=== PATIENT | female | born 1935 | race Caucasian/White ===

== ENCOUNTER 2022-12-20 15:37 | Outpatient (CLI) | payer OTHER, SELFPAY | END 2022-12-20 15:38 | disposition home or self-care (01) | PROVIDERS: Visit Provider Nurse Practitioner Family | DX: R60.9 Edema, unspecified (principal) | CPT/HCPCS: 80053; 83880 ==

== ENCOUNTER 2022-12-27 14:18 | Outpatient (CLI) | payer OTHER, SELFPAY | END 2022-12-27 14:19 | disposition home or self-care (01) | LOC: LKVREF 14:20 | PROVIDERS: Visit Provider Physician Assistant Medical | DX: R06.00 Dyspnea, unspecified (principal); T73.3XXA Exhaustion due to excessive exertion, initial encounter | CPT/HCPCS: 83880 ==

== ENCOUNTER 2023-01-21 12:08 | Outpatient (CLI) | payer MEDICARE, SELFPAY | END 2023-01-21 12:09 | disposition home or self-care (01) | LOC: RAD 12:14 | PROVIDERS: PCP Physician Assistant Medical; Visit Provider Physician Assistant Medical | DX: R06.00 Dyspnea, unspecified (principal); I51.7 Cardiomegaly; I34.0 Nonrheumatic mitral (valve) insufficiency; I07.1 Rheumatic tricuspid insufficiency; I25.10 Atherosclerotic heart disease of native coronary artery without angina pectoris; I48.91 Unspecified atrial fibrillation | CPT/HCPCS: 93306 ==

== ENCOUNTER 2023-02-07 16:32 | Outpatient (CLI) | payer MEDICARE, SELFPAY | END 2023-02-07 16:33 | disposition home or self-care (01) | LOC: LKVREF 16:32 | PROVIDERS: PCP Physician Assistant Medical; Visit Provider Physician Assistant Medical | DX: I48.91 Unspecified atrial fibrillation (principal); I35.0 Nonrheumatic aortic (valve) stenosis | CPT/HCPCS: 83880 ==

== ENCOUNTER 2023-03-16 11:56 | Outpatient (CLI) | payer MEDICARE, SELFPAY | END 2023-03-16 11:57 | disposition home or self-care (01) | PROVIDERS: PCP Physician Assistant Medical; Visit Provider Physician Assistant Medical | DX: R53.83 Other fatigue (principal); R31.9 Hematuria, unspecified; I48.91 Unspecified atrial fibrillation; I35.0 Nonrheumatic aortic (valve) stenosis | CPT/HCPCS: 83880; 87086 ==

== ENCOUNTER 2023-04-05 13:45 | Outpatient (CLI) | payer MEDICARE, SELFPAY ==
--- NOTE | 2023-04-05 14:00 | CRLHL7_ITS ---
For Patients: As a result of the Century Cures Act, medical imaging exams and procedure reports are released immediately into your electronic medical record. You may view this report before your referring provider. If you have questions, please contact your health care provider. Indication: HEMATURIA, DIARRHEA OFF AND ON FOR A YEAR Technique: Noncontrast CT abdomen and pelvis. Please note that all CT scans at this facility use dose modulation, iterative reconstruction, and/or weight-based dosing when appropriate to reduce radiation dose to as low as reasonably achievable. Comparison: None Findings: Dystrophic calcification left breast. Mitral annular calcification. No pleural or pericardial effusion. 2.6 cm hiatal hernia. Normal noncontrast enhanced liver. Gallbladder normal. Splenic calcification. Thickening of the adrenal glands. No pancreatic lesion. Atherosclerotic changes. Mild scarring in both lung bases. No pleural effusion. Degenerative disc disease mid lumbar spine. Facet degeneration lumbar spine without spondylolisthesis. Severe hypertrophic changes at the left hip joint with subchondral cystic change. Adventitial bursitis adjacent to the inferior left hip joint spurring. No bladder stone. No pelvic mass. Sigmoid diverticulosis. No bowel obstruction. No diverticulitis. Normal appendix. Punctate 2 millimeter stone midportion right kidney. 9 millimeter stone in the left renal pelvis with mild adjacent stranding. Impression: 9 millimeter stone in the left renal pelvis with mild adjacent stranding and mild pelviectasis. Sigmoid diverticulosis. No bowel obstruction or diverticulitis. Hiatal hernia. Adventitial bursitis adjacent to the inferior left hip joint spurring. Please note that all CT scans at this facility use dose modulation, iterative reconstruction, and/or weight-based dosing when appropriate to reduce radiation dose to as low as reasonably achievable. Dictated by Pan Mattson MD @ 04/06/2023 12:26:53 PM (Electronically Signed)
== END 2023-04-05 13:46 | disposition home or self-care (01) ==
LOC: CT 13:46
PROVIDERS: PCP Physician Assistant Medical; Visit Provider Physician Assistant Medical
DX: R31.9 Hematuria, unspecified (principal); N20.0 Calculus of kidney; K57.30 Diverticulosis of large intestine without perforation or abscess without bleeding; K46.9 Unspecified abdominal hernia without obstruction or gangrene; R19.7 Diarrhea, unspecified
CPT/HCPCS: 74176

== ENCOUNTER 2023-09-02 13:46 | Outpatient (CLI) | payer MEDICARE, SELFPAY | END 2023-09-02 13:47 | disposition home or self-care (01) | LOC: RAD 13:48 | PROVIDERS: PCP Physician Assistant Medical; Visit Provider Internal Medicine | DX: I35.0 Nonrheumatic aortic (valve) stenosis (principal); I51.7 Cardiomegaly; I34.0 Nonrheumatic mitral (valve) insufficiency; I07.1 Rheumatic tricuspid insufficiency; I48.91 Unspecified atrial fibrillation | CPT/HCPCS: 93306 ==

== ENCOUNTER 2023-10-17 15:30 | Outpatient (CLI) | payer MEDICARE, SELFPAY | END 2023-10-17 15:31 | disposition home or self-care (01) | LOC: LKVREF 15:31 | PROVIDERS: PCP Physician Assistant Medical; Visit Provider Physician Assistant Medical | DX: I48.11 Longstanding persistent atrial fibrillation (principal) | CPT/HCPCS: 83880 ==

== ENCOUNTER 2023-10-31 15:27 | Outpatient (CLI) | payer MEDICARE, SELFPAY | END 2023-10-31 15:28 | disposition home or self-care (01) | LOC: LKVREF 15:30 | PROVIDERS: PCP Physician Assistant Medical; Visit Provider Physician Assistant Medical | DX: I35.0 Nonrheumatic aortic (valve) stenosis (principal); R60.0 Localized edema | CPT/HCPCS: 83880 ==

== ENCOUNTER 2023-12-09 13:00 | Outpatient (RCR) | payer MEDICARE, SELFPAY ==
--- NOTE | 2023-10-25 15:32 | PT.OPE ---
PT [facility] Eval Start: 10/25/23 15:29 Freq: Status: Active Protocol: Document 10/25/23 15:29 ENM (Rec: 10/25/23 15:29 ENM [id number]) E-signed By Gail Slade, DPT Physical Therapy Outpatient Evaluation Insurance Information Recert Due Date 01/23/24 Insurance Name Medicare B Medical Diagnosis other malaise pain in right knee pain in left knee Treating Diagnosis bilateral knee pain, decreased knee ROM, impaired gait, impaired transfer, deconditioning, impaired balance Referring MD Elena Subjective Subjective Patient presents to PT for complaint of B knee pain and deconditioning (R>L). She feels that her body has fallen apart in the last couple of years. Had a heart attack in May of 2022. After that also got swelling and a kidney stone. After that had other heart issues. 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 Due to her other medical comorbidities they are concerned about doing a knee replacement. Is going to see her sheepskin pickler next month. Laila thinks that she has to have a heart valve replacement before being able to have a knee replacement. She has been using a walker for mobility since 2021 but would like to get rid of it. [facility] Doesn't have to do the stairs but when she does she can go down but coming up is challenging. Going from sitting to standing can be difficult as well. Her brother used to care of her but he recently passed and she misses him a lot. Her goal is to be able to get up and walk without difficulty. Pain Comments knee pain 5-8/10 at times Current Work Status Retired Objective Other/Pertinent Objective ROM: Did not formally assess but visible lack of knee extension bilaterally Strength: prior to 5x STS HR 87 BPM spo2 91-97% BP 137/87 5x STS with use of arms 32. 29s After HR 101 spo2 95% hip flexors L 4/5 R 4-/5 knee extensors L 4/5 R 4-/5 ankle DF 5/5 B Gait/balance: Patient ambulates with a 2WW, slow pace, flexed trunk, decreased foot clearance, decreased knee extension (L>R) . After ambulate >20' patient starts to bear more weight through the walker due to fatigue TUG with 2WW 26s Other: swelling- mild swelling throughout, moderate pitting at ankles which is painful Assessment Assessment/Impression Patient is an 88 year old female presenting with bilateral knee pain (R>L) and deconditioning. Their primary complaint is of not being able to move as easily as they used to. They have difficulties with getting to standing, walking and performing household activities. PMHx significant for L knee replacement and cardiac issues in the last 2 years. She would like to get her right knee replaced but is not a candidate at this time due to cardiac issues. Will be seeing her sheepskin pickler next month. Upon assessment patient displays decreased functional strength, endurance and balance with 5xSTS and TUG testing. She is lacking knee extension bilaterally which is worse on her left compared to right. She ambulates with slow pace, flexed trunk and knee posture, decreased foot clearance with fatigue after 20' using 2WW. Her vitals were stable throughout assessment although she was visibly SOB after ambulation and STS. Laila Underwood would greatly benefit from skilled PT to improve functional strength and activity tolerance to maintain independence and decrease risk of future falls. Primary Functional Limitations getting to standing, going up the stairs, walking, daily registered nursing professor Plan of Care Rehabilitation Potential Fair Rehabilitation Potential Comments Progress may be limited due to other medical comorbidities Physical Therapy Goals In 12-14 visits: 1. Patient will be IND with HEP and self management of symptoms 2. Patient will improve TUG score from 26s to 22s (MDC 4s) or less to demonstrate improvements in balance/ stability 3. Patient will improve 5x STS from 32.29s to 28.29s (MDC 4s ) to demonstrate improvement in LE functional strength 4. Patient will be able to ambulate >70' with 2WW and no SOB to progress tolerance for community ambulation Coordination/Communication With Referral Source Treatment Plan/Direct Interventions Gait Training,Joint Mobilization,Manual Therapy, Neuromuscular Re-ed,Self-Care/ Home Management,Therapeutic Activities,Therapeutic Exercises Frequency/Duration 2x a week for 4 weeks, 1x a week for 5-6 visits as needed Patient Will Be Discharged From Therapy Completion of LTG(s), Independent w/HEP Evaluation Billing Untimed Code Treatment Minutes 36 Complexity Moderate Certification Information Initial Certification Date 10/25/23 Ending Certification Date 01/23/24 Provider Signature Shows Agreement With POC & Medical Necessity Physician Signature & Date Requested Please Sign/Date Here Physician Comment/Change : Physician NPI Number #
== END 2024-03-15 10:49 | disposition home or self-care (01) ==
PROVIDERS: PCP Physician Assistant Medical; Visit Provider Physician Assistant Medical
DX: M25.561 Pain in right knee (principal); M25.562 Pain in left knee; Z51.89 Encounter for other specified aftercare
CPT/HCPCS: 97110; 97162; 97530

== ENCOUNTER 2024-01-16 11:04 | Outpatient (CLI) | payer MEDICARE, SELFPAY | END 2024-01-16 11:05 | disposition home or self-care (01) | LOC: AMB 01-17 18:37 | PROVIDERS: PCP Physician Assistant Medical; Visit Provider Family Medicine | DX: R51.9 Headache, unspecified (principal) | CPT/HCPCS: A0425; A0427 ==

== ENCOUNTER 2024-01-16 12:04 | Inpatient (IN) | payer MEDICARE, SELFPAY ==
[2024-01-16] VITALS (8 sets, daily range): BP systolic 82–141; BP diastolic 50–108; PULSE 71–109; RESP 20–24; TEMP 36.5–37.1; O2SAT 93–98; BMI 34.3; BMI 34.4
--- NOTE | 2024-01-16 12:19 | ED_ITS ---
HPI - General Adult General Time Seen by Provider: 12:19 Date Seen: 01/16/24 Chief complaint: Weakness Stated complaint: Covid, weakness Time Seen by Provider: 01/16/24 12:06 Source: patient, EMS and RN notes reviewed Mode of arrival: EMS Limitations: no limitations History of Present Illness HPI narrative: This 88-year-old female is brought in by ambulance from [place] where she resides. She is complaining of weakness, has been lying in bed. She reports that she did fall on her right side yesterday, has some shoulder pain, complains of left hip pain, both knees hurt. She had diarrhea reportedly last , had some emesis yesterday. Patient seems confused at this time. She is denying any respiratory symptoms. She does have some baseline shortness of breath and is known to have severe aortic stenosis. There is no worsening of her symptoms. She has had some headaches. As far as body aches, she states she is hurting but believes it to be from the fall. There was reportedly COVID exposure but when I specifically ask patient, she acts like she is unaware of this. She did see Cardiology on January 08 last week for follow-up of her aortic stenosis. Sounds as if there may be plans to repair this. Nursing staff was told by EMS that there were friends that she had been in contact with that believe that the patient actually gave them COVID after visiting her. Unclear if patient was ill at that time or not. She just seems to be mildly confused when talking to her. She does note loss of appetite. No fevers. Denies any abdominal pain at this time. Related Data Home Medications ?Medication ?Instructions ?Recorded ?Confirmed cholecalciferol (vitamin D3) 25 25 mcg PO DAILY 12/20/22 01/16/24 mcg (1,000 unit) capsule famotidine 10 mg tablet (Pepcid AC) 10 mg PO DAILY 12/20/22 01/16/24 Previous Rx's ?Medication ?Instructions ?Recorded apixaban 5 mg tablet (Eliquis) 5 mg PO BID #180 tabs 10/17/23 carvedilol 12.5 mg tablet 12.5 mg PO BID #180 tabs 10/17/23 potassium chloride 10 mEq 10 meq PO BID #180 caps 10/17/23 capsule,extended release furosemide 20 mg tablet 20 mg PO BID #180 tabs 12/01/23 Allergies Allergy/AdvReac Type Severity Reaction Status Date / Time codeine Allergy Severe Nausea Verified 01/16/24 12:13 Review of Systems Status of ROS: Reports: 6 or more systems reviewed and unremarkable except as noted in History and [facility] History History of endometrial cancer (~2005) ?Z85.42 - Personal history of malignant neoplasm of other parts of uterus (ICD-10) History of heart attack (~05/2022) ?I25.2 - Old myocardial infarction (ICD-10) Surgical History History of total left knee replacement (~2015) ?Z96.652 - Presence of left artificial knee joint (ICD-10) History of total abdominal hysterectomy and bilateral salpingo-oophorectomy (~2005) ?Z90.710 - Acquired absence of both cervix and uterus (ICD-10) ?Z90.722 - Acquired absence of ovaries, bilateral (ICD-10) ?Z90.79 - Acquired absence of other genital organ(s) (ICD-10) Family History Mother DVT (deep venous thrombosis) Social History Smoking Status: Never smoker How often do you have a drink containing alcohol: never AUDIT-C Alcohol total score: 0 Non-prescribed substance use: denies use Little interest or pleasure in doing things: not at all Feeling down, depressed, or hopeless: several days service: No Exam Const: Vital Signs, click to edit/add: Vital Signs - 24 hr 01/16/24 12:15 01/16/24 12:55 Pulse Rate [Pulse Oximeter] 100 Respiratory Rate 20 Blood Pressure [Ri ght Upper Arm] 141/89 H Pulse Oximetry 97 98 Oxygen Delivery Me thod Room Air This 88-year-old female is alert and interactive, no apparent distress but does have difficulty giving me some of her history, she seems confused with her history in comparison what has been reported to us by EMS. No family is here at this time. Sclera clear, conjugate gaze, symmetrical facial function, able to speak in complete sentences. Neck is supple, no adenopathy. Lungs are clear, good air entry, no wheezing crackles, no tachypnea. CV regular rate and rhythm, has a soft but harsh systolic murmur heard right upper sternal border, really is not that loud. I hear gallop best down at the apex. Abdomen is obese but soft, nontender, do not feel any masses or organomegaly but body habitus may preclude this examination. She sitting with her knees flexed and feet on the bed. Anterior knees on inspection reveal no traumatic change. She does demonstrate extending the legs. Does not seem to have any range of motion issues, joints without effusion. Her right upper extremity reveals full range of motion throug h the fingers, hand, wrist, elbow. She complains of some shoulder pain but I do get good range of motion of the shoulder, no underlying crepitus, no significant limitation. Do not have any palpable tender areas on inspection and palpation of this extremity. No tenderness over her chest wall. Documenting provider has reviewed patient's vital signs: yes Course Course ED Course: This patient does strike me as possibly having some mild encephalopathy, would not surprise me if she does have COVID and some morris meant COVID encephalopathy. She could have underlying GI illness that is not related to COVID. Patient is not febrile, currently hemodynamically stable at this time. Will do imaging of her head given the fall, she cannot tell me if she hit her head. Does not believe there was loss of consciousness but again, she seems confused. Will image her shoulder, left hip and pelvis and knees. Will get complement of chemistries in labs, do the triple viral swab which will check for COVID. Will monitor here on pulse oximetry to start. Will get an EKG as well. Reevaluation(s) Time of Reevaluation #1: 13:30 Reevaluation #1: Patient's creatinine is elevated at 2.6 with a BUN of 44. Last creatinine in clinic was 1.4 on 10/31/2023. Consultations Consultation #1: Spoke with the hospitalist Dr. Christiansen, reviewed patient's case. Did point out that she has acute renal failure on probable underlying chronic renal disease. We did discuss that she is on Eliquis, this may need to be held or dose adjusted. Did discuss ongoing IV fluids, will initiate some maintenance with LR after my discussion with him. 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 Christiansen. She is not hypoxic, no pneumonia, no elevated white count. She will need supportive care, may need placement depending on her clinical course. Given her aortic stenosis, judicious fluid use is necessary. There is no evidence of CHF at this time. She did receive an initial 250 mL normal saline bolus. We will initiate IV fluids as stated. Time: 15:39 Vital Signs Vital signs: Initial Vital Signs Pulse Rate 100 01/16/24 12:15 Respiratory Rate 20 01/16/24 12:15 Blood Pressure 141/89 H 01/16/24 12:15 Blood Pressure Mean 106 H 01/16/24 12:15 Blood Pressure Position Semi-Fowlers 01/16/24 12:15 Pulse Oximetry 97 01/16/24 12:15 Oxygen Delivery Method Room Air 01/16/24 12:15 Vital Signs Pulse Rate 100 01/16/24 12:15 Respiratory Rate 20 01/16/24 12:15 Blood Pressure 141/89 H 01/16/24 12:15 Pulse Oximetry 97 01/16/24 12:15 Oxygen Delivery Method Room Air 01/16/24 12:15 Pulse Rate 100 01/16/24 12:15 Respiratory Rate 20 01/16/24 12:15 Blood Pressure 141/89 H 01/16/24 12:15 Pulse Oximetry 98 01/16/24 12:55 Oxygen Delivery Method Room Air 01/16/24 12:15 Medications Administered Medications: Discontinued Medications Generic Name Dose Route Start Last Admin Trade Name Freq PRN Reason Stop Dose Admin Sodium Chloride 250 mls @ 250 mls/hr 01/16/24 13:26 01/16/24 14:29 0.9 % Sodium Chloride 250 Ml IV 01/16/24 14:25 250 mls/hr .Q1H ONE Administration Medical Decision Making Lab Data Lab results reviewed: Yes I reviewed the patient's lab results Labs: Lab Results 01/16/24 01/16/24 01/16/24 Range/Units 12:46 15:35 Unknown WBC 5.49 (4.50-11.00) K/uL RBC 4.96 (4.00-5.20) m/uL Hgb 13.4 (12.0-16.0) gm/dL Hct 41.8 (33.0-51.0) % MCV 84 (80-100) fL MCH 27 (26-34) pg MCHC 32 (32-36) gm/dL RDW Coeff of Tigist 16.3 H (11.5-15.5) % Plt Count 195 (140-440) K/uL Neut % (Auto) 74.0 H (42.0-72.0) % Lymph % (Auto) 15.8 L (20-44) % [place] % (Auto) 9.1 (0.0-11.0) % Eos % (Auto) 0.7 (0.0-7.0) % Baso % (Auto) 0.2 (0.0-3.0) % Neut # (Auto) 4.10 (1.7-7.0) K/uL Lymph # (Auto) 0.90 (0.90-2.90) K/uL [place] # (Auto) 0.50 (0.00-0.90) K/UL Eos # (Auto) 0.04 (0.00-0.50) K/uL Baso # (Auto) 0.01 (0.00-0.30) K/uL Abs Immat Gran (auto) 0.01 (0.00-0.30) K/uL Imm/Tot Granulo (auto) 0.2 % Sodium 135 (135-149) mmol/L Potassium 3.4 L (3.6-5.1) mmol/L Chloride 101 (96-114) mmol/L Carbon Dioxide 22 (20-32) mmol/L Anion Gap 12 (7-15) mEq/L BUN 44 H (7-30) mg/dL Creatinine 2.6 H (0.5-1.5) mg/dL Estimated Creat Clear 13.16 Estimated GFR 17 ml/min Glucose 122 H (60-115) mg/dL Lactate 1.1 (0.5-1.9) mmol/L Calcium 8.8 (8.4-10.6) mg/dL Total Bilirubin 1.1 (0.1-1.5) mg/dL AST 29 (12-35) U/L ALT 9 (4-35) U/L Alkaline Phosphatase 63 (40-150) U/L Troponin I 0.02 (0.01-0.04) ng/mL C-Reactive Protein 2.3 H (0.5-1.0) mg/dL Total Protein 6.6 (6.0-8.3) g/dL Albumin 3.7 (3.3-5.0) g/dL SARS-CoV-2 (PCR) POSITIVE SARS-CoV-2 A (Negative) Influenza Type A (PCR) Negative PCR FLU A (Negative) Influenza Type B (PCR) Negative PCR FLU B (Negative) RSV (PCR) Negative PCR RSV (Negative) Lab Acknowledgement Test Added Imaging Data CT scan - head: Attestation: I have reviewed the pertinent imaging results. Radiologist's impression: Patient: FELICIANO AGUILAR Facility:?[facility] Patient ID:?[id number] Site Patient ID:?[id number]. Site :?[id number] Study:?CT-Head w/o-01/16/2024 1:50:47 PM Ordering Physician:?Marc García Final Report: INDICATION: Fall. Hit head. TECHNIQUE: CT head without contrast. COMPARISON: None. FINDINGS: Mild generalized volume loss. Mild ill-defined low attenuation in the periventricular and subcortical white matter. Intracranial atherosclerosis. There is no mass effect or midline shift. No hydrocephalus. No CT evidence of acute hemorrhage or infarction. No abnormal extra-axial fluid collection. Bone windows show no acute calvarial fracture. Lobular mucosal thickening, mucous retention cyst or polyp suspected in the right maxillary sinus. IMPRESSION: 1. No acute intracranial abnormality. 2. Mild generalized volume loss and changes of chronic small vessel ischemic disease. Dictated by Anselmo Vick MD @ 01/16/2024 2:06:53 PM Please note that all CT scans at this facility use dose modulation, iterative reconstruction, and/or weight-based dosing when appropriate to reduce radiation dose to as low as reasonably achievable. Dictated by: Anselmo Vick MD @ 01/16/2024 14:07:07 (Electronic Signature) XR right hip: Attestation: I have reviewed the pertinent imaging results. My impression: Do see significant arthritis of her right hip cannot say that I see definitive fracture, await Radiology over-read. Radiologist's impression: Patient: FELICIANO AGUILAR Facility:?[facility] Patient ID:?[id number] Site Patient ID:?[id number]. Site :?[id number] Study:?XRay-Hip Left 2 VIEW AND PELVIS-01/16/2024 2:32:41 PM Ordering Physician:?Marc García Final Report: INDICATION: Fall. Pain. TECHNIQUE: Pelvis one view. Left hip two views. COMPARISON: None. FINDINGS: Bone demineralization. Advanced degenerative changes at the left hip. [id number] degenerative changes of the right hip and visualized lumbar spine. No evidence of acute fracture or dislocation. Vascular calcifications and surgical clips in the pelvis. IMPRESSION: No acute osseous abnormality. Dictated by Anselmo Vick MD @ 01/16/2024 2:52:34 PM (Electronic Signature) XR right shoulder: Attestation: I have reviewed the pertinent imaging results. My impression: I do not appreciate fracture, do think that she has AC joint arthritis on my preliminary review, wait radiology over read. Radiologist's impression: Patient: FELICIANO AGUILAR Facility:?[facility] Patient ID:?[id number] Site Patient ID:?[id number]. Site :?[id number] Study:?XRay-Hip Left 2 VIEW AND PELVIS-01/16/2024 2:32:41 PM Ordering Physician:?Marc García Final Report: INDICATION: Fall. Pain. TECHNIQUE: Pelvis one view. Left hip two views. COMPARISON: None. FINDINGS: Bone demineralization. Advanced degenerative changes at the left hip. [id number] degenerative changes of the right hip and visualized lumbar spine. No evidence of acute fracture or dislocation. Vascular calcifications and surgical clips in the pelvis. IMPRESSION: No acute osseous abnormality. Dictated by Anselmo Vick MD @ 01/16/2024 2:52:34 PM (Electronic Signature) XR bilateral knees: Attestation: I have reviewed the pertinent imaging results. My impression: I do not appreciate any acute fracture on either knee on my preliminary review, she does have arthritic changes particularly in the medial joint of the right knee, left knee is replaced and the components looked to be well seated. Will await Radiology over-read. Radiologist's impression: Patient: FELICIANO AGUILAR Facility:?[facility] Patient ID:?[id number] Site Patient ID:?[id number]. Site :?[id number] Study:?XRay-Knee Bilateral 2 VIEW-01/16/2024 2:33:57 PM Ordering Physician:?Marc García Final Report: INDICATION: Fall. Bilateral knee pain. TECHNIQUE: Right knee two views. Left knee two views. COMPARISON: None. FINDINGS: No acute fracture or dislocation. Moderate to advanced right knee osteoarthritis greatest in the medial compartment, with medial compartment [id number] physiology. Left knee arthroplasty shows no evidence of complication. Vascular calcifications. Soft tissues as imaged are otherwise unremarkable. IMPRESSION: No acute osseous abnormality. Dictated by Anselmo Vick MD @ 01/16/2024 2:59:12 PM (Electronic Signature) Chest x-ray: Attestation: I have reviewed the pertinent imaging results. My impression: No infiltrate or CHF seen, do not appreciate any pattern consistent with COVID pneumonia on my preliminary review. Radiologist's impression: Patient: FELICIANO AGUILAR Facility:?[facility] Patient ID:?[id number] Site Patient ID:?[id number]. Site :?[id number] Study:?XRay-Chest 2 VIEW-01/16/2024 2:34:59 PM Ordering Physician:?Marc García Final Report: Indication: Fall, weakness Comparison: None available. Technique: PA and lateral views of the chest Findings: There is hyperinflation and chronic interstitial change without dense consolidation, effusion or pneumothorax. The cardiac silhouette is mildly prominent. The bony thorax is grossly intact. Impression: Hyperinflation and chronic interstitial change without dense consolidation. Dictated by Marino Arthur MD @ 01/16/2024 2:59:52 PM (Electronic Signature) ECG Data Attestation: I personally reviewed and interpreted this ECG as follows: (Atrial fibrillation, right bundle branch block, no definitive ischemia or infarct noted.) Prior ECG tracings: available for review (Compared to August 2023) Critical Care Time Critical Care Time Critical Care Time: No Discharge Plan Discharge Clinical Impression: COVID-19, Encephalopathy due to COVID-19 virus Acute renal failure superimposed on chronic kidney disease Qualifiers: Acute renal failure type: unspecified Chronic kidney disease stage: unspecified stage Qualified Code(s): N17.9 - Acute kidney failure, unspecified Patient Disposition: Admitted As Observation
[2024-01-16 12:52] LABS: Lactate* 1.1 mmol/L (0.5-1.9)
[2024-01-16 12:58] LABS: Basophils Absolute Auto 0.01 K/uL (0.00-0.30); Basophils Percent Auto 0.2 % (0.0-3.0); Eosinophils Absolute Auto 0.04 K/uL (0.00-0.50); Eosinophils Percent Auto 0.7 % (0.0-7.0); Hematocrit 41.8 % (33.0-51.0); Hemoglobin* 13.4 gm/dL (12.0-16.0); Immature Granulocytes Abs Auto 0.01 K/uL (0.00-0.30); Immature Granulocytes Pct Auto 0.2 %; Lymphocytes Percent Auto 15.8 % (20-44); Mean Corpuscular HGB Conc 32 gm/dL (32-36); Mean Corpuscular Hemoglobin 27 pg (26-34); Mean Corpuscular Volume 84 fL (80-100); Monocytes Percent Auto 9.1 % (0.0-11.0); Platelet Count* 195 K/uL (140-440); RDW Coefficient of Variation % 16.3 % (11.5-15.5); Red Blood Count 4.96 m/uL (4.00-5.20); White Blood Count* 5.49 K/uL (4.50-11.00)
--- NOTE | 2024-01-16 13:01 | CRLHL7_ITS ---
For Patients: As a result of the Cures Act, medical imaging exams and procedure reports are released immediately into your electronic medical record. You may view this report before your referring provider. If you have questions, please contact your health care provider. INDICATION: Fall. Bilateral knee pain. TECHNIQUE: Right knee two views. Left knee two views. COMPARISON: None. FINDINGS: No acute fracture or dislocation. Moderate to advanced right knee osteoarthritis greatest in the medial compartment, with medial compartment [id number] physiology. Left knee arthroplasty shows no evidence of complication. Vascular calcifications. Soft tissues as imaged are otherwise unremarkable. IMPRESSION: No acute osseous abnormality. Dictated by Anselmo Vick MD @ 01/16/2024 2:59:12 PM (Electronically Signed)
--- NOTE | 2024-01-16 13:01 | CRLHL7_ITS ---
For Patients: As a result of the Century Cures Act, medical imaging exams and procedure reports are released immediately into your electronic medical record. You may view this report before your referring provider. If you have questions, please contact your health care provider. INDICATION: Fall. Hit head. TECHNIQUE: CT head without contrast. COMPARISON: None. FINDINGS: Mild generalized volume loss. Mild ill-defined low attenuation in the periventricular and subcortical white matter. Intracranial atherosclerosis. There is no mass effect or midline shift. No hydrocephalus. No CT evidence of acute hemorrhage or infarction. No abnormal extra-axial fluid collection. Bone windows show no acute calvarial fracture. Lobular mucosal thickening, mucous retention cyst or polyp suspected in the right maxillary sinus. IMPRESSION: 1. No acute intracranial abnormality. 2. Mild generalized volume loss and changes of chronic small vessel ischemic disease. Dictated by Anselmo Vick MD @ 01/16/2024 2:06:53 PM Please note that all CT scans at this facility use dose modulation, iterative reconstruction, and/or weight-based dosing when appropriate to reduce radiation dose to as low as reasonably achievable. Dictated by: Anselmo Vick MD @ 01/16/2024 14:07:07 (Electronically Signed)
--- NOTE | 2024-01-16 13:01 | CRLHL7_ITS ---
For Patients: As a result of the Cures Act, medical imaging exams and procedure reports are released immediately into your electronic medical record. You may view this report before your referring provider. If you have questions, please contact your health care provider. INDICATION: Fall. Pain. TECHNIQUE: Right shoulder three views. COMPARISON: None. FINDINGS: No acute fracture or dislocation. Moderate degenerative changes of the acromioclavicular and glenohumeral joints. No additional osseous abnormality. Faint calcification near the greater tuberosity is likely degenerative. Carotid calcification suspected. Soft tissues elsewhere as imaged are unremarkable. IMPRESSION: No acute osseous abnormality. Dictated by Anselmo Vick MD @ 01/16/2024 2:54:54 PM (Electronically Signed)
--- NOTE | 2024-01-16 13:01 | CRLHL7_ITS ---
For Patients: As a result of the Century Cures Act, medical imaging exams and procedure reports are released immediately into your electronic medical record. You may view this report before your referring provider. If you have questions, please contact your health care provider. Indication: Fall, weakness Comparison: None available. Technique: PA and lateral views of the chest Findings: There is hyperinflation and chronic interstitial change without dense consolidation, effusion or pneumothorax. The cardiac silhouette is mildly prominent. The bony thorax is grossly intact. Impression: Hyperinflation and chronic interstitial change without dense consolidation. Dictated by Marino Arthur MD @ 01/16/2024 2:59:52 PM (Electronically Signed)
--- NOTE | 2024-01-16 13:01 | CRLHL7_ITS ---
For Patients: As a result of the Cures Act, medical imaging exams and procedure reports are released immediately into your electronic medical record. You may view this report before your referring provider. If you have questions, please contact your health care provider. INDICATION: Fall. Pain. TECHNIQUE: Pelvis one view. Left hip two views. COMPARISON: None. FINDINGS: Bone demineralization. Advanced degenerative changes at the left hip. [id number] degenerative changes of the right hip and visualized lumbar spine. No evidence of acute fracture or dislocation. Vascular calcifications and surgical clips in the pelvis. IMPRESSION: No acute osseous abnormality. Dictated by Anselmo Vick MD @ 01/16/2024 2:52:34 PM (Electronically Signed)
[2024-01-16 13:08] LABS: Slide Review Reflex No
[2024-01-16 13:10] LABS: Chloride* 101 mmol/L (96-114)
[2024-01-16 13:11] LABS: Albumin* 3.7 g/dL (3.3-5.0); Potassium* 3.4 mmol/L (3.6-5.1); Sodium* 135 mmol/L (135-149)
[2024-01-16 13:13] LABS: Creatinine* 2.6 mg/dL (0.5-1.5); Est. Creatinine Clearance* 13.16; Estimated Glomerular Filt Rate 17 ml/min
[2024-01-16 13:14] LABS: Alanine Aminotransferase* 9 U/L (4-35); Alkaline Phosphatase* 63 U/L (40-150); Anion Gap 12 mEq/L (7-15); Aspartate Amino Transferase* 29 U/L (12-35); Bilirubin Total* 1.1 mg/dL (0.1-1.5); Blood Urea Nitrogen* 44 mg/dL (7-30); Carbon Dioxide* 22 mmol/L (20-32); Glucose* 122 mg/dL (60-115); Total Protein* 6.6 g/dL (6.0-8.3)
[2024-01-16 13:15] LABS: Calcium* 8.8 mg/dL (8.4-10.6)
[2024-01-16 13:17] LABS: C Reactive Protein* 2.3 mg/dL (0.5-1.0)
[2024-01-16 13:26] LABS: Troponin I* 0.02 ng/mL (0.01-0.04)
[2024-01-16 13:31] LABS: PCR FLU A Negative PCR FLU A (Negative); PCR FLU B Negative PCR FLU B (Negative); PCR RSV Negative PCR RSV (Negative); SARS PCR* POSITIVE SARS-CoV-2 (Negative)
[2024-01-16] MEDS: 0.9 % SODIUM CHLORIDE 250 ml 250 ML IV (14:29)
[2024-01-16] MEDS: LACTATED RINGERS 1000 ML 1,000 ML 75 ML IV (15:48)
[2024-01-16 16:03] LABS: Appearance Urine Slightly Cloudy (Clear); Bilirubin Urine 1+ (Negative); Blood Urine 2+ (Negative); Color Urine Yellow (Yellow); Glucose Urine Negative (Negative); Ketones Urine Trace (Negative); Leukocyte Esterase Urine 1+ (Negative); Nitrite Urine Negative (Negative); Protein Urine 2+ (Negative)
[2024-01-16 16:31] LABS: Bacteria Urine Moderate; Fine Granular Casts Urine Few; RBC Urine 0-2 (0-2); Squamous Epithelial Cell Urine Few (None-Few)
[2024-01-16 16:40] LABS: Creatine Kinase* 166 U/L (41-117)
--- NOTE | 2024-01-16 16:59 | P.IMHP_ITS ---
<Statement entered by Rosalia Damico - 01/16/24 18:20> I Rosalia Damico personally scribed for Dr. Christiansen on 01/16/24 at 1600 pm. Documented by User: Rosalia Damico 01/16/24 18:37 Hospitalist- H&P: HPI History of Present Illness Time Seen by Provider: 16:00 Date Seen: 01/16/24 Chief complaint: Covid, weakness Narrative: Laila Cadena is a 88 year old female who presents to the floor from the ED. Beginning on Tuesday Laila started noticing a funny feeling she describes as feeling dizzy, lightheaded and not being fully with it with brain fog. She would often lay down to make her symptoms better. On Tuesday, when she got out of bed she had the same funny feeling and woke up on the floor. She does not remember falling. She does not know if she hit her head. She was able to scoot over to get her phone to call her friends since she lives alone and they came and helped get her off the floor. Her friends then called her nephew Jensen who then called EMS to bring her to the hospital. She denies any other prodrome symptoms. She has been keeping up on her fluid intake. She has not been eating a lot but she attributes that to her nausea, vomiting, and diarrhea that she had on through Tuesday. She denies any current GI symptoms and states they have all resolved. Additionally, she has a cough that began in the middle of the week that is productive with a green sputum color but she feels like it is getting better and almost done. She denies any other respiratory symptoms. She denies sick contacts. She rarely gets out of the house and the last time she left was for an [facility] appointment last Tuesday. She has a PMH of severe aortic stenosis and afib. She has been recommended to get a TAVR for her valve. I have reviewed the labs and imaging from the ER visit. Notable findings: Normal hemoglobin. Normal platelet. No white count Chemistries reveal hypokalemia at 3.4. Kidney function is abnormal with a BUN at 44 and a creatinine at 2.6 Urine did not show signs of an asymptomatic bacteriuria with positive leukocyte esterase and WBC with moderate urine bacteria. UC pending. Negative flu and RSV. COVID positive. Admission EKG shows afib and a RBBB. Admission imaging all reviewed, this included a shoulder xray, knee xray, hip xray, head ct, and chest xray. Notable findings: Shoulder xray: No acute fracture or dislocation. Moderate degenerative changes. Knee xray: No acute fracture or dislocation. Moderate to advanced right knee osteoarthritis. Hip xray: Advanced degenerative changes at the left hip. Head CT: No acute intracranial abnormality. Mild generalized volume loss and changes of chronic small vessel ischemic disease. Chest xray: Hyperinflation and chronic interstitial change without dense consolidation. Review of Systems Status of ROS: Reports: 6 or more systems reviewed and unremarkable except as noted in History and below Const: Reports: fatigue; Denies: fever or chills Eyes: Denies: change in vision ENMT: Denies: throat pain, ear pain or nasal discharge Cardio: Reports: lightheadedness; Denies: chest pain, palpitations, edema (Has baseline edema. Denies worsening edema. ) or shortness of breath with exertion Resp: Reports: cough (Productive with green sputum.); Denies: shortness of breath GI: Denies: abdominal pain, nausea (Resolved. ), vomiting (Resolved. ) or diarrhea (Resolved. ) : Denies: painful urination or urinary frequency Musculo: Reports: extremity pain (Fell on R shoulder, elbow and hip. ) Neuro: Reports: headache (Tension location. ) and dizziness Endo: Reports: fatigue Yeyo/Lymph: Reports: easy bruising PFSH [facility] Medical History (Updated 01/16/24 @ 20:35 by Ang Christiansen MD) Grief ?F43.21 - Adjustment disorder with depressed mood (ICD-10) HTN (hypertension) ?I10 - Essential (primary) hypertension (ICD-10) Kidney stone on left side (~03/2023) ?N20.0 - Calculus of kidney (ICD-10) Hematuria (~03/2023) ?R31.9 - Hematuria, unspecified (ICD-10) Vaginal bleeding (~02/2023) ?N93.9 - Abnormal uterine and vaginal bleeding, unspecified (ICD-10) Fatigue ?R53.83 - Other fatigue (ICD-10) Atrial fibrillation ?I48.91 - Unspecified atrial fibrillation (ICD-10) CAD (coronary artery disease) ?I25.10 - Atherosclerotic heart disease of [place] coronary artery without angina pectoris (ICD-10) Edema ?R60.9 - Edema, unspecified (ICD-10) Osteoarthritis of right knee ?M17.11 - Unilateral primary osteoarthritis, right knee (ICD-10) DNR (do not resuscitate) (~10/17/23) ?Z66 - Do not resuscitate (ICD-10) Bilateral knee pain ?M25.561 - Pain in right knee (ICD-10) ?M25.562 - Pain in left knee (ICD-10) Physical deconditioning ?R53.81 - Other malaise (ICD-10) Chronic anticoagulation ?Z79.01 - MCC (current) use of anticoagulants (ICD-10) Enrolled in chronic care management ?Z78.9 - Other specified health status (ICD-10) Acute renal failure superimposed on chronic kidney disease ?N17.9 - Acute kidney failure, unspecified (ICD-10) ?N18.9 - Chronic kidney disease, unspecified (ICD-10) Aortic stenosis ?I35.0 - Nonrheumatic aortic (valve) stenosis (ICD-10) History of endometrial cancer (~2005) ?Z85.42 - Personal history of malignant neoplasm of other parts of uterus (ICD-10) History of heart attack (~05/2022) ?I25.2 - Old myocardial infarction (ICD-10) Surgical History History of total left knee replacement (~2015) ?Z96.652 - Presence of left artificial knee joint (ICD-10) History of total abdominal hysterectomy and bilateral salpingo-oophorectomy (~2005) ?Z90.710 - Acquired absence of both cervix and uterus (ICD-10) ?Z90.722 - Acquired absence of ovaries, 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 She reports this is going well for her. Closest contact today was her nephew who arrange for her to come to the hospital for evaluation. Code status is DNR. She does not smoke. She does not drink alcohol. What is your current living situation?: I presently have a place to live Problems where you live: other Problems where you live details: Pt states the stairs are increasingly more difficult to use In the past 12 months, utilities in danger of being shut off: no In past 12 months, lack of transportation kept you from medical appts, meetings, work, or getting things needed for daily living: no In the past 12 mos, have been you worried that your food would run out before you had money to buy more?: never true In the past 12 mos, the food you bought just didn't last and you didn't have money to buy more?: never true Highest level of school completed/degree received: some college, no degree Smoking Status: Never smoker Do you use any of these nicotine containing products: None Second hand tobacco smoke exposure: No How often do you have a drink containing alcohol: never How often do you have six or more drinks on one occasion: Never AUDIT-C Alcohol total score: 0 Non-prescribed substance use: denies use Caffeine: No How often does anyone, including family, friends and others, physically hurt you : never How often does anyone, including family, friends and others, insult or talk down to you: never How often does anyone, including family, friends and others, threaten you with h arm: never How often does anyone, including family, friends and others, scream or curse at you: never Little interest or pleasure in doing things: not at all Feeling down, depressed, or hopeless: several days service: No Meds Home Medications and Allergies Home Medications ?Medication ?Instructions ?Recorded ?Confirmed ?Type cholecalciferol (vitamin D3) 25 25 mcg PO DAILY 12/20/22 01/16/24 History mcg (1,000 unit) capsule famotidine 10 mg tablet (Pepcid AC) 10 mg PO DAILY 12/20/22 01/16/24 History Allergies Allergy/AdvReac Type Severity Reaction Status Date / Time codeine Allergy Severe Nausea Verified 01/16/24 12:13 Exam Narrative: Exam Narrative: Laila is a pleasant 88Y F. She is sitting in bed comfortable and is able to hold a conversation with me. She is able to answer questions pretty appropriately for me. She is able to connect her story line together for the most part. There are a few hiccups in her narrative but overall knows what has been happening to her and what brought her into the hospital. Const: Vital Signs, click to edit/add: Vital Signs - 24 hr 01/16/24 12:15 01/16/24 12:55 01/16/24 16:04 Temperature 98.7 F Pulse Rate [Pulse Oximeter] 100 71 Respiratory Rate 20 20 Blood Pressure [[facility] Upper Arm] 141/89 H 128/74 Pulse Oximetry 97 98 97 Oxygen Delivery Me thod Room Air Room Air Common normals: no apparent distress General appearance: cooperative and comfortable Neck & C-Spine: Common normals: no JVD Lymph: Lymphatic: no lymphadenopathy noted Resp: Common normals: clear to auscultation bilaterally Auscultation: clear to auscultation bilaterally; no crackles, no rales, no rhonchi and no wheezes Cardio: Common normals: no JVD, regular rate, regular rhythm, S1 normal heart sound, S2 normal heart sound and no murmurs (Aortic stenosis is not very loud. ) Rate: regular rate Rhythm: regular rhythm Heart sounds: S1 normal and S2 normal GI: Common normals: Normal to inspection, nondistended, normoactive bowel sounds present Extremity: Common normals: full ROM (Right upper extremity. ) and no joint enlargement; pedal edema Other: No palpable areas on right shoulder, elbow, or hip. Neuro: Common normals: CN's II-XII intact bilaterally and moves all extremities Skin: Trauma: other (Bruise on inner right and left leg and calf. ) Hospitalist - H&P: Result Labs Labs: Short CBC 01/16/24 Range/Units 12:46 WBC 5.49 (4.50-11.00) K/uL Hgb 13.4 (12.0-16.0) gm/dL Hct 41.8 (33.0-51.0) % Plt Count 195 (140-440) K/uL BMP 01/16/24 12:46 Sodium 135 Potassium 3.4 L Chloride 101 Carbon Dioxide 22 BUN 44 H Creatinine 2.6 H Glucose 122 H Calcium 8.8 Cardiac Enzymes 01/16/24 Range/Units 12:46 Total Creatine Kinase 166 H (41-117) U/L Troponin I 0.02 (0.01-0.04) ng/mL Liver Function 01/16/24 Range/Units 12:46 Total Bilirubin 1.1 (0.1-1.5) mg/dL AST 29 (12-35) U/L ALT 9 (4-35) U/L Alkaline Phosphatase 63 (40-150) U/L Albumin 3.7 (3.3-5.0) g/dL Urine 01/16/24 Range/Units 15:30 Urine Color Yellow (Yellow) Urine Appearance Slightly Cloudy A (Clear) Urine pH 6.0 (5.0-8.5) Ur Specific [place] 1.020 (1.000-1.030) Urine Protein 2+ A (Negative) Urine Glucose (UA) Negative (Negative) Assessment and Plan Assessment and plan (1) COVID-19: Problem comment: - Patient tested positive for COVID 19 via a PCR test on 01/16/24. Likely became ill 5 days ago - Treat symptoms with supportive care. I think she is clinically improving today. - Ordered continuous pulse oximetry. Status: Acute (2) Loss of consciousness: Problem comment: - Potential differentials for the patient's loss of consciousness: aortic stenosis, afib, and COVID with poor oral intake. - More than likely a syncopal episode due to prodrome symptoms. - Ordered orthostatic vital signs and cardiac monitoring. Temporarily hold diuretic. Consider reducing diuretic which was started for edema. If continued to have significant orthostatic symptoms would worry more that this is related to aortic stenosis. Status: Acute (3) Aortic stenosis: Problem comment: - TTE echo done on 09/02/23 and revealed severe aortic stenosis with low flow low gradient. Monitor for recurrent syncope - [facility] [place]: recommended due to her age and frailty she should have a TAVR if anatomy is suitable. CT scan for TAVR pending Status: Acute (4) Acute kidney injury: Problem comment: - Potential causes: vomiting, diarrhea, medications, not eating enough, and COVID. - Admission labs on 01/16/24: BUN at 444. Creatinine at 2.6. GFR at 17. CrCl at 13.16. (previous labs: creatinine 1.1 on 12/20/22 and creatinine 1.3 on 02/07/23). - Renally dose medications. - Measure Intake and Output. Status: Acute (5) Atrial fibrillation: Problem comment: - Currently in afib upon admission EKG (01/16/24). - Currently on Eliquis and Carvedilol. - Continue current medications while in the hospital. Status: Chronic Plan - VTE: high risk of bleeding. Is already on Eliquis for afib but will renally dose due to her ADDY. Total Time Spent Total Time Spent: I spent 45 minutes reviewing the patient's history and interviewing the patient. Documented by User: Ang Christiansen MD 01/16/24 20:38 Hospitalist- H&P: HPI History of Present Illness Date Seen: 01/16/24 Chief complaint: Covid, weakness Review of Systems Narrative: Patient reports generally doing well prior to the onset of symptoms of illness about 5 days ago. Initially some question of exposure to other people with COVID. She tells me now that she was at the target developer's office 1 week ago and at the dentist's office 6 days ago prior to becoming ill 5 days ago. No other definite exposures. Prior to this Tuesday where she found herself on the floor presumably having passed out she denies other episodes of syncope or unexplained falls or inju fady. She reports overall feeling better today except she notes that her head felt like she was in a fog this morning. She says that is better now. [facility] Medical History (Updated 01/16/24 @ 20:35 by Ang Christiansen MD) Grief ?F43.21 - Adjustment disorder with depressed mood (ICD-10) HTN (hypertension) ?I10 - Essential (primary) hypertension (ICD-10) Kidney stone on left side (~03/2023) ?N20.0 - Calculus of kidney (ICD-10) Hematuria (~03/2023) ?R31.9 - Hematuria, unspecified (ICD-10) Vaginal bleeding (~02/2023) ?N93.9 - Abnormal uterine and vaginal bleeding, unspecified (ICD-10) Fatigue ?R53.83 - Other fatigue (ICD-10) Atrial fibrillation ?I48.91 - Unspecified atrial fibrillation (ICD-10) CAD (coronary artery disease) ?I25.10 - Atherosclerotic heart disease of [place] coronary artery without angina pectoris (ICD-10) Edema ?R60.9 - Edema, unspecified (ICD-10) Osteoarthritis of right knee ?M17.11 - Unilateral primary osteoarthritis, right knee (ICD-10) DNR (do not resuscitate) (~10/17/23) ?Z66 - Do not resuscitate (ICD-10) Bilateral knee pain ?M25.561 - Pain in right knee (ICD-10) ?M25.562 - Pain in left knee (ICD-10) Physical deconditioning ?R53.81 - Other malaise (ICD-10) Chronic anticoagulation ?Z79.01 - MCC (current) use of anticoagulants (ICD-10) Enrolled in chronic care management ?Z78.9 - Other specified health status (ICD-10) Acute renal failure superimposed on chronic kidney disease ?N17.9 - Acute kidney failure, unspecified (ICD-10) ?N18.9 - Chronic kidney disease, unspecified (ICD-10) Aortic stenosis ?I35.0 - Nonrheumatic aortic (valve) stenosis (ICD-10) History of endometrial cancer (~2005) ?Z85.42 - Personal history of malignant neoplasm of other parts of uterus (ICD-10) History of heart attack (~05/2022) ?I25.2 - Old myocardial infarction (ICD-10) Surgical History History of total left knee replacement (~2015) ?Z96.652 - Presence of left artificial knee joint (ICD-10) History of total abdominal hysterectomy and bilateral salpingo-oophorectomy (~2005) ?Z90.710 - Acquired absence of both cervix and uterus (ICD-10) ?Z90.722 - Acquired absence of ovaries, 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 She reports this is going well for her. Closest contact today was her nephew who arrange for her to come to the hospital for evaluation. Code status is DNR. She does not smoke. She does not drink alcohol. What is your current living situation?: I presently have a place to live Problems where you live: other Problems where you live details: Pt states the stairs are increasingly more difficult to use In the past 12 months, utilities in danger of being shut off: no In past 12 months, lack of transportation kept you from medical appts, meetings, work, or getting things needed for daily living: no In the past 12 mos, have been you worried that your food would run out before you had money to buy more?: never true In the past 12 mos, the food you bought just didn't last and you didn't have money to buy more?: never true Highest level of school completed/degree received: some college, no degree Smoking Status: Never smoker Do you use any of these nicotine containing products: None Second hand tobacco smoke exposure: No How often do you have a drink containing alcohol: never How often do you have six or more drinks on one occasion: Never AUDIT-C Alcohol total score: 0 Non-prescribed substance use: denies use Caffeine: No How often does anyone, including family, friends and others, physically hurt you : never How often does anyone, including family, friends and others, insult or talk down to you: never How often does anyone, including family, friends and others, threaten you with harm: never How often does anyone, including family, friends and others, scream or curse at you: never Little interest or pleasure in doing things: not at all Feeling down, depressed, or hopeless: several days service: No Meds Home Medications and Allergies Home Medications ?Medication ?Instructions ?Recorded ?Confirmed ?Type cholecalciferol (vitamin D3) 25 25 mcg PO DAILY 12/20/22 01/16/24 History mcg (1,000 unit) capsule famotidine 10 mg tablet (Pepcid AC) 10 mg PO DAILY 12/20/22 01/16/24 History Allergies Allergy/AdvReac Type Severity Reaction Status Date / Time codeine Allergy Severe Nausea Verified 01/16/24 12:13 Exam Narrative: Exam Narrative: Laila is a pleasant 88Y F. She is sitting in bed comfortable and is able to hold a conversation with me. She is able to answer questions pretty appropriately for me. She is able to connect her story line together for the most part. There are a few hiccups in her narrative but overall knows what has been happening to her and what brought her into the hospital. Speech is fluent. Head is atraumatic and normocephalic. Eyes are normal. No facial asymmetry. Oropharynx is normal. Neck is supple without mass or adenopathy. Respirations are clear to auscultation. No wheezing rales or rhonchi. Cardiovascular: S1, S2, 1/6 systolic ejection murmur heard at the right upper sternal border. Irregularly irregular rhythm. Abdomen is soft without tenderness or mass. She has full strength in all 4 extremities. Intact pulses in all 4 extremities. 1+ edema in both ankles. Const: Documenting provider has reviewed patient's vital signs: yes Assessment and Plan Assessment and plan (1) COVID-19: Problem comment: - Patient tested positive for COVID 19 via a PCR test on 01/16/24. Likely became ill 5 days ago - Treat symptoms with supportive care. I think she is clinically improving today. - Ordered continuous pulse oximetry. Status: Acute (2) Loss of consciousness: Problem comment: - Potential differentials for the patient's loss of consciousness: aortic stenosis, afib, and COVID with poor oral intake. - More than likely a syncopal episode due to prodrome symptoms. - Ordered orthostatic vital signs and cardiac monitoring. Temporarily hold diuretic. Consider reducing diuretic which was started for edema. If continued to have significant orthostatic symptoms would worry more that this is related to aortic stenosis. Status: Acute (3) Aortic stenosis: Problem comment: - TTE echo done on 09/02/23 and revealed severe aortic stenosis with low flow low gradient. Monitor for recurrent syncope - [facility] [place]: recommended due to her age and frailty she should have a TAVR if anatomy is suitable. CT scan for TAVR pending Status: Acute (4) Acute kidney injury: Problem comment: - Potential causes: vomiting, diarrhea, medications, not eating enough, and COVID. - Admission labs on 01/16/24: BUN at 444. Creatinine at 2.6. GFR at 17. CrCl at 13.16. (previous labs: creatinine 1.1 on 12/20/22 and creatinine 1.3 on 02/07/23). - Renally dose medications. - Measure Intake and Output. Status: Acute (5) Atrial fibrillation: Problem comment: - Currently in afib upon admission EKG (01/16/24). - Currently on Eliquis and Carvedilol. - Continue current medications while in the hospital. Status: Chronic Plan Patient admitted to the hospital for evaluation management of weakness, acute kidney injury, COVID illness, syncope. VTE: high risk of bleeding. Is already on Eliquis for afib but will renally dose due to her ADDY. Total Time Spent Total Time Spent: Total time spent today is 85 minutes evaluation and management of above medical problems and discussing with patient and other care providers plan of care.
[2024-01-16] MEDS: POTASSIUM BICARB 25 MEQ EFFERVESCENT TAB PO (19:34)
--- NOTE | 2024-01-16 19:52 | PC.NURSE ---
ADMISSION NOTE: Pt A&O, pleasant. VSS on RA. Denies CP, N/V. Reports MIRANDA. Has mild SOB upon exertion. IV d/c by pt shortly after admission, attempted to replace x2, director housekeeping coming to attempt IV placement. Pt up 1-2 assist with walker.
[2024-01-16] MEDS: cephALEXin 500 MG CAPSULE PO (20:44)
[2024-01-16] MEDS: carvediloL 6.25 MG TABLET 12.5 MG PO (22:59)
[2024-01-16] MEDS: SODIUM CHLORIDE 0.9 % (FLUSH) 10 ML SYRINGE 5 ML IVF (23:00)
[2024-01-17] VITALS (11 sets, daily range): BP systolic 91–130; BP diastolic 64–91; PULSE 70–99; RESP 16–20; TEMP 36.6–37.1; O2SAT 92–99
[2024-01-17 06:49] LABS: Basophils Absolute Auto 0.01 K/uL (0.00-0.30); Basophils Percent Auto 0.2 % (0.0-3.0); Eosinophils Absolute Auto 0.12 K/uL (0.00-0.50); Eosinophils Percent Auto 2.2 % (0.0-7.0); Hematocrit 40.6 % (33.0-51.0); Immature Granulocytes Abs Auto 0.02 K/uL (0.00-0.30); Immature Granulocytes Pct Auto 0.4 %; Mean Corpuscular HGB Conc 32 gm/dL (32-36); Mean Corpuscular Hemoglobin 27 pg (26-34); Mean Corpuscular Volume 85 fL (80-100); Monocytes Percent Auto 9.3 % (0.0-11.0); Neutrophils Percent Auto 65.9 % (42.0-72.0); Platelet Count* 199 K/uL (140-440); White Blood Count* 5.46 K/uL (4.50-11.00)
[2024-01-17 06:52] LABS: Slide Review Reflex No
[2024-01-17 06:59] LABS: Chloride* 102 mmol/L (96-114); Potassium* 3.5 mmol/L (3.6-5.1); Sodium* 137 mmol/L (135-149)
[2024-01-17 07:02] LABS: Creatinine* 2.4 mg/dL (0.5-1.5); Est. Creatinine Clearance* 14.26; Estimated Glomerular Filt Rate 19 ml/min
[2024-01-17 07:03] LABS: Anion Gap 7 mEq/L (7-15); Blood Urea Nitrogen* 46 mg/dL (7-30); Calcium* 8.6 mg/dL (8.4-10.6); Carbon Dioxide* 28 mmol/L (20-32); Glucose* 96 mg/dL (60-115)
[2024-01-17 07:15] LABS: Troponin I* 0.02 ng/mL (0.01-0.04)
--- NOTE | 2024-01-17 07:42 | PC.NURSE ---
Patient pleasant, alert and oriented. Transfers and ambulates with wheeled walker, gait belt and assist of one. Denied pain but reports brain fog at times. Quarter sized amount of bright red blood mixed in with sputum. Patient reports had not happened before. [place] blood noted on toilet paper after wiping and pink water in toilet after urinating.?Hospitalist updated. Orthostatic BP dropped when standing. Pt denied any lightheadedness or dizziness. Per Dr Christiansen updated. Per MD simon to give HS Carvedilol. ?
[2024-01-17] MEDS: FAMOTIDINE 20 MG TABLET 10 MG PO (08:41)
[2024-01-17] MEDS: POTASSIUM CHLORIDE 10 MEQ CAPSULE ER PO (08:42)
[2024-01-17] MEDS: carvediloL 6.25 MG TABLET 12.5 MG PO ×2 (08:42→20:05)
[2024-01-17] MEDS: cephALEXin 500 MG CAPSULE PO ×3 (08:42→20:05)
[2024-01-17] MEDS: APIXABAN 5 MG TABLET 2.5 MG PO ×2 (08:43→20:05)
[2024-01-17] MEDS: SODIUM CHLORIDE 0.9 % (FLUSH) 10 ML SYRINGE 5 ML IVF (08:44)
--- NOTE | 2024-01-17 12:15 | REH.OT ---
Orders received for PT/OT eval and treat. Per hospitalist, evaluations on hold until 01/18/24
--- NOTE | 2024-01-17 16:53 | P.IMPN_ITS ---
Progress Note: A&P Assessment and plan (1) COVID-19: Problem details: - Patient tested positive for COVID 19 via a PCR test on 01/16/24. Likely became ill 5 days ago - Treat symptoms with supportive care. Appears to be clinically improving from this. - On continuous pulse oximetry. No hypoxia noted. Status: Acute (2) Loss of consciousness: Problem details: - Potential differentials for the patient's loss of consciousness: aortic stenosis, afib, and COVID with poor oral intake. - More than likely a syncopal episode due to prodrome symptoms. - Orthostatic last night. Spell today, no VS changes with that. Concerning that this may be related to severe . Continue to monitor tonight yet and consider call to cardiology. Temporarily hold diuretic. Consider reducing diuretic which was started for edema. Status: Acute (3) Aortic stenosis: Problem details: - TTE echo done on 09/02/23 and revealed severe aortic stenosis with low flow low gradient. Monitor for recurrent syncope - [facility]: recommended due to her age and frailty she should have a TAVR if anatomy is suitable. CT scan for TAVR pending Status: Acute (4) Acute kidney injury: Problem details: - Potential causes: vomiting, diarrhea, medications, not eating enough, and COVID. - Admission labs on 01/16/24: BUN at 44. Creatinine at 2.6. GFR at 17. CrCl at 13.16. (previous labs: creatinine 1.1 on 12/20/22 and creatinine 1.3 on 02/07/23). Suspect prerenal. - Renally dose medications. - Cr 2.6 -> 2.4 today. Cautiously increase IVF (carefully in setting of ) and encourage PO intake. - Continue to measure Intake and Output. Status: Acute (5) Atrial fibrillation: Problem details: - Currently in afib upon admission EKG (01/16/24). - Currently on Eliquis and Carvedilol. - Continue current medications while in the hospital. Status: Chronic (6) Hypokalemia: Problem details: Replace orally. Recheck in am. Status: Acute Subjective Time Seen by Provider: 11:20 Date Seen: 01/17/24 Interval history: Laila's nurse told me that Laila complained of a spell with a change in vision. I went to see her immediately. Laila would not directly answer any question I asked her, but did not complain about or endorse any change in vision. She said she felt lightheaded and c/o abdominal discomfort and felt like she needed to use the bathroom because she was going to have diarrhea. Exam Narrative: Exam Narrative: General: No acute distress. Awake, alert, oriented. Mild pallor. No jaundice. Oropharynx: Clear. Mucous membranes moist. Cardiovascular: Regular rate and rhythm. No murmurs, gallops, or rubs. Respiratory: Clear to auscultation bilaterally. No wheezes or crackles. Abdomen: Bowel sounds present. Soft, nondistended, nontender. Extremities: Tender with bruising on left medial knee. Const: Vital Signs, click to edit/add: Vital Signs - 24 hr 01/16/24 19:00 01/16/24 21:27 01/16/24 22:25 Temperature 97.7 F 98.1 F Pulse Rate Pulse Rate [Pulse Oximeter] 95 91 Pulse Rate [orthos tatic lying Pulse Oximeter] 91 Pulse Rate [orthos tatic sitting Puls e Oximeter] 98 Pulse Rate [orthos tatic standing Pul se Oximeter] 109 H Respiratory Rate 24 22 Blood Pressure [Ri ght Arm] 113/50 L 111/72 Blood Pressure [or thostatic lying Ri ght Arm] 105/54 L Blood Pressure [or thostatic sitting Right Arm] 112/71 Blood Pressure [or thostatic standing Right Arm] 82/63 L Pulse Oximetry 96 93 Oxygen Delivery Me thod Room Air Room Air 01/16/24 23:00 01/17/24 03:00 01/17/24 07:00 Temperature 98.7 F 98.7 F Pulse Rate 90 Pulse Rate [Pulse Oximeter] 97 87 Pulse Rate [orthos tatic lying Pulse Oximeter] Pulse Rate [orthos tatic sitting Puls e Oximeter] Pulse Rate [orthos tatic standing Pul se Oximeter] Respiratory Rate 16 20 Blood Pressure [Ri ght Arm] 123/77 130/89 Blood Pressure [or thostatic lying Ri ght Arm] Blood Pressure [or thostatic sitting Right Arm] Blood Pressure [or thostatic standing Right Arm] Pulse Oximetry 92 92 Oxygen Delivery Me thod Room Air Room Air 01/17/24 07:00 01/17/24 07:55 01/17/24 11:00 Temperature 98.2 F Pulse Rate 99 Pulse Rate [Pulse Oximeter] 87 83 Pulse Rate [orthos tatic lying Pulse Oximeter] Pulse Rate [orthos tatic sitting Puls e Oximeter] Pulse Rate [orthos tatic standing Pul se Oximeter] Respiratory Rate 20 16 Blood Pressure [Ri ght Arm] 112/91 H Blood Pressure [or thostatic lying Ri ght Arm] Blood Pressure [or thostatic sitting Right Arm] Blood Pressure [or thostatic standing Right Arm] Pulse Oximetry 92 Oxygen Delivery Me thod Room Air 01/17/24 13:52 01/17/24 15:58 Temperature 98.3 F 98.3 F Pulse Rate Pulse Rate [Pulse Oximeter] 93 88 Pulse Rate [orthos tatic lying Pulse Oximeter] Pulse Rate [orthos tatic sitting Puls e Oximeter] Pulse Rate [orthos tatic standing Pul se Oximeter] Respiratory Rate 18 18 Blood Pressure [Ri ght Arm] 113/71 110/86 Blood Pressure [or thostatic lying Ri ght Arm] Blood Pressure [or thostatic sitting Right Arm] Blood Pressure [or thostatic standing Right Arm] Pulse Oximetry 92 92 Oxygen Delivery Me thod Room Air Room Air Labs Labs: Laboratory Results - last 24 hr 01/17/24 06:14 WBC 5.46 RBC 4.80 Hgb 13.0 Hct 40.6 MCV 85 MCH 27 MCHC 32 RDW Coeff of Tigist 16.0 H Plt Count 199 Neut % (Auto) 65.9 Lymph % (Auto) 22.0 [place] % (Auto) 9.3 Eos % (Auto) 2.2 Baso % (Auto) 0.2 Neut # (Auto) 3.60 Lymph # (Auto) 1.20 [place] # (Auto) 0.50 Eos # (Auto) 0.12 Baso # (Auto) 0.01 Abs Immat Gran (auto) 0.02 Imm/Tot Granulo (auto) 0.4 Sodium 137 Potassium 3.5 L Chloride 102 Carbon Dioxide 28 Anion Gap 7 BUN 46 H Creatinine 2.4 H Estimated Creat Clear 14.26 Estimated GFR 19 Glucose 96 Calcium 8.6 Troponin I 0.02 C-Reactive Protein 2.0 H
[2024-01-17] MEDS: POTASSIUM BICARB 25 MEQ EFFERVESCENT TAB PO (17:34)
[2024-01-17] MEDS: LACTATED RINGERS 1000 ML 1,000 ML 100 ML IV ×2 (17:47→20:31)
--- NOTE | 2024-01-17 18:50 | PC.NURSE ---
End of shift. pt has been pleasant, pt is alert and oriented. pain in hip and knee 4-6/10 and she did not want anything for it. she is up with walker, gait belt and assist of one. Orthostatic BP done. Pt denied any lightheadedness or dizziness. on Covid precautions.
[2024-01-18] VITALS (10 sets, daily range): BP systolic 95–121; BP diastolic 68–89; PULSE 78–104; RESP 18–20; TEMP 36.5–36.9; O2SAT 91–96
[2024-01-18] MEDS: ACETAMINOPHEN 325 MG TABLET 650 MG PO ×2 (02:53→20:11)
--- NOTE | 2024-01-18 06:23 | PC.NURSE ---
End of shift [id number]: Pt is A&O, VSS and afebrile overnight. She is Ax1 with 2ww and gait belt for ambulation and transfers. Incontinent/continent of B&B, had x1 loose stool overnight. PIV in left AC infiltrated so a new 20G placed in right AC with LR infusing @ 100 mL/hr. Pt c/o pain in left knee and hip; PRN Tylenol given @ 0255 & repositioned for comfort. Pt declined having ice or heat applied. TELE reads Addy GARCIA. Pt declined eating dinner and no PO intake overnight so IV fluids continued. Denies any dizziness or nausea, reports not having an appetite. ?
[2024-01-18 06:43] LABS: Basophils Absolute Auto 0.02 K/uL (0.00-0.30); Basophils Percent Auto 0.4 % (0.0-3.0); Eosinophils Absolute Auto 0.13 K/uL (0.00-0.50); Eosinophils Percent Auto 2.9 % (0.0-7.0); Hematocrit 38.1 % (33.0-51.0); Hemoglobin* 12.1 gm/dL (12.0-16.0); Immature Granulocytes Abs Auto 0.01 K/uL (0.00-0.30); Immature Granulocytes Pct Auto 0.2 %; Lymphocytes Percent Auto 26.5 % (20-44); Mean Corpuscular HGB Conc 32 gm/dL (32-36); Mean Corpuscular Hemoglobin 27 pg (26-34); Mean Corpuscular Volume 85 fL (80-100); Monocytes Percent Auto 9.5 % (0.0-11.0); Neutrophils Absolute Auto 2.73 K/uL (1.7-7.0); Neutrophils Percent Auto 60.5 % (42.0-72.0); Platelet Count* 173 K/uL (140-440); White Blood Count* 4.52 K/uL (4.50-11.00)
[2024-01-18 06:48] LABS: Slide Review Reflex No
[2024-01-18 07:06] LABS: Chloride* 104 mmol/L (96-114); Potassium* 3.8 mmol/L (3.6-5.1); Sodium* 135 mmol/L (135-149)
[2024-01-18 07:08] LABS: Creatinine* 1.5 mg/dL (0.5-1.5); Est. Creatinine Clearance* 22.82; Estimated Glomerular Filt Rate 34 ml/min
[2024-01-18 07:09] LABS: Anion Gap 4 mEq/L (7-15); Blood Urea Nitrogen* 38 mg/dL (7-30); Carbon Dioxide* 27 mmol/L (20-32); Glucose* 83 mg/dL (60-115)
[2024-01-18 07:10] LABS: Calcium* 8.6 mg/dL (8.4-10.6)
[2024-01-18 07:12] LABS: C Reactive Protein* 1.1 mg/dL (0.5-1.0)
[2024-01-18] MEDS: LACTATED RINGERS 1000 ML 1,000 ML 100 ML IV (08:05)
[2024-01-18] MEDS: POTASSIUM CHLORIDE 10 MEQ CAPSULE ER PO (09:04)
[2024-01-18] MEDS: cephALEXin 500 MG CAPSULE PO ×3 (09:04→20:08)
[2024-01-18] MEDS: FAMOTIDINE 20 MG TABLET 10 MG PO (09:04)
[2024-01-18] MEDS: carvediloL 6.25 MG TABLET 12.5 MG PO ×2 (09:05→20:08)
[2024-01-18] MEDS: APIXABAN 5 MG TABLET 2.5 MG PO ×2 (09:05→20:08)
--- NOTE | 2024-01-18 16:14 | PM.IMPN1 ---
Progress Note: A&P Assessment and plan (1) COVID-19: Problem details: - Patient tested positive for COVID 19 via a PCR test on 01/16/24. Likely became ill 5 days ago - Treat symptoms with supportive care. Appears to be clinically improving from this. - On continuous pulse oximetry. No hypoxia noted. Status: Acute (2) Loss of consciousness: Problem details: - Potential differentials for the patient's loss of consciousness: aortic stenosis, afib, and COVID with poor oral intake. - More than likely a syncopal episode due to prodrome symptoms. - Orthostatic last night. Spell today, no VS changes with that. Concerning that this may be related to severe . Continue to monitor tonight yet and consider call to cardiology. Temporarily hold diuretic. Consider reducing diuretic which was started for edema. Status: Acute (3) Aortic stenosis: Problem details: - TTE echo done on 09/02/23 and revealed severe aortic stenosis with low flow low gradient. Monitor for recurrent syncope - [facility]: recommended due to her age and frailty she should have a TAVR if anatomy is suitable. CT scan for TAVR pending Status: Chronic (4) Acute kidney injury: Problem details: - Potential causes: vomiting, diarrhea, medications, not eating enough, and COVID. - Admission labs on 01/16/24: BUN at 44. Creatinine at 2.6. GFR at 17. CrCl at 13.16. (previous labs: creatinine 1.1 on 12/20/22 and creatinine 1.3 on 02/07/23). Suspect prerenal. - Renally dose medications. - Cr 2.6 -> 2.4 today ->1.5 Much improved, not baseline yet. Stop IVF and monitor overnight yet. - Continue to measure Intake and Output. Status: Acute (5) Atrial fibrillation: Problem details: - Currently in afib upon admission EKG (01/16/24). - Currently on Eliquis and Carvedilol. - Continue current medications while in the hospital. Status: Chronic (6) Hypokalemia: Problem details: Resolved, monitor. Status: Acute Subjective Time Seen by Provider: 09:20 Date Seen: 01/18/24 Interval history: Laila feels much better today. She tells me that she is having less nausea and less diarrhea. She was still incontinent of urine overnight, but it is unclear if this is acute or chronic. She has not had any further spells and feels much better overall. She still has some pain in her knees were they are bruised. We discussed what level of care she might need at home verses [facility]. She notes that if she really needed somebody to be there all the time, her nephew might come out from [place] and help out for a bit. Otherwise she has several friends who live in the area, 1 is as close as 4 blocks away and could check in on her a few times a day. I note that [place] is 25/30. She is still requiring some assistance for transfers at least. Exam Narrative: Exam Narrative: General: No acute distress. Awake, alert, oriented. No pallor. No jaundice. Oropharynx: Clear. Mucous membranes moist. Cardiovascular: Regular rate and rhythm. No murmurs, gallops, or rubs. Respiratory: Clear to auscultation bilaterally. No wheezes or crackles. Abdomen: Bowel sounds present. Soft, nondistended, nontender. Extremities: Tender with bruising on left medial knee. Const: Vital Signs, click to edit/add: Vital Signs - 24 hr 01/17/24 16:58 01/17/24 17:36 01/17/24 19:00 Temperature 97.8 F Pulse Rate Pulse Rate [Pulse Oximeter] 88 88 Pulse Rate [orthos tatic lying Pulse Oximeter] 80 Pulse Rate [orthos tatic sitting Puls e Oximeter] 85 Pulse Rate [orthos tatic standing Pul se Oximeter] 97 Respiratory Rate 18 18 Blood Pressure [Le ft Arm] Blood Pressure [Ri ght Arm] 116/78 Blood Pressure [or thostatic lying Ri ght Arm] 107/74 Blood Pressure [or thostatic sitting Right Arm] 95/64 Blood Pressure [or thostatic standing Right Arm] 91/67 Pulse Oximetry 99 Oxygen Delivery Me thod Room Air 01/17/24 23:00 01/17/24 23:00 01/17/24 23:00 Temperature 98.3 F Pulse Rate 85 Pulse Rate [Pulse Oximeter] 84 93 Pulse Rate [orthos tatic lying Pulse Oximeter] Pulse Rate [orthos tatic sitting Puls e Oximeter] Pulse Rate [orthos tatic standing Pul se Oximeter] Respiratory Rate 20 20 Blood Pressure [Le ft Arm] Blood Pressure [Ri ght Arm] 119/75 Blood Pressure [or thostatic lying Ri ght Arm] Blood Pressure [or thostatic sitting Right Arm] Blood Pressure [or thostatic standing Right Arm] Pulse Oximetry 92 Oxygen Delivery Me thod Room Air 01/18/24 03:00 01/18/24 06:56 01/18/24 07:45 Temperature 97.7 F Pulse Rate 78 Pulse Rate [Pulse Oximeter] 88 85 Pulse Rate [orthos tatic lying Pulse Oximeter] Pulse Rate [orthos tatic sitting Puls e Oximeter] Pulse Rate [orthos tatic standing Pul se Oximeter] Respiratory Rate 18 18 Blood Pressure [Le ft Arm] 107/68 Blood Pressure [Ri ght Arm] Blood Pressure [or thostatic lying Ri ght Arm] Blood Pressure [or thostatic sitting Right Arm] Blood Pressure [or thostatic standing Right Arm] Pulse Oximetry 91 Oxygen Delivery Me thod Room Air 01/18/24 08:05 01/18/24 11:33 01/18/24 11:34 Temperature 98.0 F 98.2 F Pulse Rate Pulse Rate [Pulse Oximeter] 85 80 Pulse Rate [orthos tatic lying Pulse Oximeter] 80 Pulse Rate [orthos tatic sitting Puls e Oximeter] 88 Pulse Rate [orthos tatic standing Pul se Oximeter] 104 H Respiratory Rate 18 18 Blood Pressure [Le ft Arm] 121/70 120/79 Blood Pressure [Ri ght Arm] Blood Pressure [or thostatic lying Ri ght Arm] 120/79 Blood Pressure [or thostatic sitting Right Arm] 121/89 Blood Pressure [or thostatic standing Right Arm] 112/85 Pulse Oximetry 93 93 Oxygen Delivery Me thod Room Air Room Air 01/18/24 15:39 01/18/24 15:39 01/18/24 15:49 Temperature 98.4 F Pulse Rate 94 Pulse Rate [Pulse Oximeter] 80 80 Pulse Rate [orthos tatic lying Pulse Oximeter] Pulse Rate [orthos tatic sitting Puls e Oximeter] Pulse Rate [orthos tatic standing Pul se Oximeter] Respiratory Rate 18 18 Blood Pressure [Le ft Arm] 103/78 Blood Pressure [Ri ght Arm] Blood Pressure [or thostatic lying Ri ght Arm] Blood Pressure [or thostatic sitting Right Arm] Blood Pressure [or thostatic standing Right Arm] Pulse Oximetry 93 Oxygen Delivery Me thod Room Air Labs Labs: Laboratory Results - last 24 hr 01/18/24 06:09 WBC 4.52 RBC 4.50 Hgb 12.1 Hct 38.1 MCV 85 MCH 27 MCHC 32 RDW Coeff of Tigist 16.0 H Plt Count 173 Neut % (Auto) 60.5 Lymph % (Auto) 26.5 [place] % (Auto) 9.5 Eos % (Auto) 2.9 Baso % (Auto) 0.4 Neut # (Auto) 2.73 Lymph # (Auto) 1.20 [place] # (Auto) 0.40 Eos # (Auto) 0.13 Baso # (Auto) 0.02 Abs Immat Gran (auto) 0.01 Imm/Tot Granulo (auto) 0.2 Sodium 135 Potassium 3.8 Chloride 104 Carbon Dioxide 27 Anion Gap 4 L BUN 38 H Creatinine 1.5 Estimated Creat Clear 22.82 Estimated GFR 34 Glucose 83 Calcium 8.6 C-Reactive Protein 1.1 H
--- NOTE | 2024-01-18 18:23 | PC.NURSE ---
End of shift. pt is still pleasant, pt is alert and oriented, she is better today more clear. pain in hip and knee 4-10 and she said no to Tylenol. offered meds. she is up with walker, gait belt and assist of one. Orthostatic BP done. Pt denied any lightheadedness or dizziness. on Covid precautions. she is eating, drinking and been incontinent on and off. brief is on. PT and OT worked with her.
[2024-01-18] MEDS: SODIUM CHLORIDE 0.9 % (FLUSH) 10 ML SYRINGE 5 ML IVF (20:15)
[2024-01-19 03:00] VITALS: BP 117/76; PULSE 86; RESP 18; TEMP 36.8; O2SAT 96
--- NOTE | 2024-01-19 06:27 | PC.NURSE ---
End of shift : Pt is A&O, VSS and afebrile. She is SBA ? Ax1 with 2ww and gait belt. Still c/o 5-710 pain in LL extremity but overall refuses interventions for pain relief. Accepted PRN Tylenol before bed @ 2009. She?s been continent of B&B overnight, no BM. PIV in right AC is SL and C/D/I. TELE reads Addy White NVR. Pt slept well in between cares.
[2024-01-19 06:58] VITALS: PULSE 78
[2024-01-19 07:00] LABS: Basophils Percent Auto 0.5 % (0.0-3.0); Eosinophils Percent Auto 4.2 % (0.0-7.0); Hematocrit 39.7 % (33.0-51.0); Hemoglobin* 12.6 gm/dL (12.0-16.0); Immature Granulocytes Pct Auto 0.2 %; Lymphocytes Percent Auto 27.8 % (20-44); Mean Corpuscular HGB Conc 32 gm/dL (32-36); Mean Corpuscular Hemoglobin 27 pg (26-34); Mean Corpuscular Volume 86 fL (80-100); Neutrophils Percent Auto 58.3 % (42.0-72.0); Platelet Count* 185 K/uL (140-440); RDW Coefficient of Variation % 16.2 % (11.5-15.5); Red Blood Count 4.62 m/uL (4.00-5.20); White Blood Count* 4.31 K/uL (4.50-11.00)
[2024-01-19 07:05] LABS: Slide Review Reflex No
[2024-01-19 07:12] LABS: Chloride* 105 mmol/L (96-114); Potassium* 4.1 mmol/L (3.6-5.1); Sodium* 136 mmol/L (135-149)
[2024-01-19 07:15] LABS: Anion Gap 4 mEq/L (7-15); Blood Urea Nitrogen* 38 mg/dL (7-30); Carbon Dioxide* 27 mmol/L (20-32); Creatinine* 1.5 mg/dL (0.5-1.5); Est. Creatinine Clearance* 22.82; Estimated Glomerular Filt Rate 34 ml/min; Glucose* 95 mg/dL (60-115)
[2024-01-19 07:16] LABS: Calcium* 8.8 mg/dL (8.4-10.6)
[2024-01-19 07:37] VITALS: BP 113/70; PULSE 96; RESP 18; TEMP 36.7; O2SAT 93
[2024-01-19 07:40] VITALS: PULSE 96; RESP 18
[2024-01-19] MEDS: SODIUM CHLORIDE 0.9 % (FLUSH) 10 ML SYRINGE 5 ML IVF (09:02)
[2024-01-19] MEDS: carvediloL 6.25 MG TABLET 12.5 MG PO (09:03)
[2024-01-19] MEDS: POTASSIUM CHLORIDE 10 MEQ CAPSULE ER PO (09:03)
[2024-01-19] MEDS: APIXABAN 5 MG TABLET 2.5 MG PO (09:03)
[2024-01-19] MEDS: FAMOTIDINE 20 MG TABLET 10 MG PO (09:03)
[2024-01-19] MEDS: cephALEXin 500 MG CAPSULE PO (09:04)
--- NOTE | 2024-01-19 10:55 | P.DS_ITS ---
DS: Providers Provider Date Seen: 01/19/24 Date of admission: 01/16/24 20:37 Primary care physician: Bekah Elena PA-C Admitting Clinician: Ang Christiansen MD Consults: 01/16/24 17:39 Consult to Occupational Therapy [CONS] Routine Comment: Reason(s) for OT Consult:: Evaluate and Treat Any Restrictions?:: No Restrictions Consult to Physical Therapy [CONS] Routine Comment: Reason(s) for PT Consult:: Evaluate and Treat Any Restrictions?:: No Restrictions Consult to Mailing Machine Helper [CONS] Routine Comment: Reason for Consult:: Discharge Planning Needs 01/16/24 18:37 Consult to Occupational Therapy [CONS] Routine Comment: Reason(s) for OT Consult:: Difficulty Managing ADLs Any Restrictions?:: No Restrictions Consult to Physical Therapy [CONS] Routine Comment: Reason(s) for PT Consult:: Recent Falls Any Restrictions?:: No Restrictions Consult to Mailing Machine Helper [CONS] Routine Comment: Reason for Consult:: Discharge Planning Needs Attending Physician on discharge: RAJANI Walker PA-C [facility] Date of Discharge: 01/19/24 DS: Diagnosis Discharge Diagnosis (1) COVID-19: Status: Acute Problem details: Tested positive for COVID 19 via a PCR test on 01/16/24. Likely became ill 5 days ago. No hypoxia. Remained afebrile. Symptoms were treated with supportive cares. Weakness with suspected fall, amnestic to event. No trauma findings. Suspected metabolic encephalopathy though cleared. PT and OT were consulted, noting patient back to baseline prior to discharge. Discharged home to continue recommended quarantine. (2) Loss of consciousness: Status: Acute Problem details: Potential differentials for the patient's loss of consciousness: aortic stenosis, afib, and COVID with poor oral intake. More than likely a syncopal episode due to prodrome symptoms. Had been orthostatic.Spell today, no VS changes with that. Concerning that this may be related to severe . Is awaiting further Cardiology workup. Diuretic has been reduced to once daily until follow up with PCP. (3) Aortic stenosis: Status: Chronic Problem details: TTE echo done on 09/02/23 and revealed severe aortic stenosis with low flow low gradient. Monitored for recurrent syncope without further episodes. Per [facility]: recommended due to her age and frailty she should have a TAVR if anatomy is suitable. Patient plans to schedule CT TAVR following discharge. (4) Acute kidney injury: Status: Acute Problem details: In setting of vomiting, diarrhea, medications, not eating enough, and COVID. Admission labs on 01/16/24: BUN at 44. Creatinine at 2.6. GFR at 17. CrCl at 13.16. (previous labs: creatinine 1.1 on 12/20/22 and creatinine 1.3 on 02/07/23). Suspect prerenal. - Cr 2.6 -> 2.4 today ->1.5 prior to discharge Outpatient follow-up with PCP. (5) Atrial fibrillation: Status: Chronic Problem details: Continued on Eliquis and Carvedilol. (6) Hypokalemia: Status: Acute Problem details: Resolved prior to discharge (7) UTI (urinary tract infection): Status: Acute Problem details: E coli growing in urine culture, pansensitive. Patient discharged to complete course of Keflex. DS: Summary Hospital Course Hospital Course: [age] year old female was admitted to the medical floor for management weakness, ADDY in setting of acute COVID. Course of care and details as noted above. Remainder of chronic medical comorbidities were monitored and managed with home medications. Status at Discharge Overall status at discharge: patient is back to baseline Time Spent with Patient Time attestation: Total time spent providing and/or coordinating discharge services: Time spent: Greater than 30 minutes Exam Narrative: Exam Narrative: PHYSICAL EXAM General: Pleasant, conversant, NAD Cardiovascular: RRR Pulmonary: No dyspnea Neurological: Alert, answering questions appropriately Skin: Warm, dry. Const: Vital Signs, click to edit/add: Vital Signs - 24 hr 01/18/24 11:33 01/18/24 11:34 01/18/24 15:39 Temperature 98.2 F 98.4 F Pulse Rate Pulse Rate [Pulse Oximeter] 80 80 Pulse Rate [orthos tatic lying Pulse Oximeter] 80 Pulse Rate [orthos tatic sitting Puls e Oximeter] 88 Pulse Rate [orthos tatic standing Pul se Oximeter] 104 H Respiratory Rate 18 18 Blood Pressure [Le ft Arm] 120/79 103/78 Blood Pressure [or thostatic lying Ri ght Arm] 120/79 Blood Pressure [or thostatic sitting Right Arm] 121/89 Blood Pressure [or thostatic standing Right Arm] 112/85 Pulse Oximetry 93 93 Oxygen Delivery Me thod Room Air Room Air 01/18/24 15:39 01/18/24 15:49 01/18/24 19:00 Temperature 98.1 F Pulse Rate 94 Pulse Rate [Pulse Oximeter] 80 86 Pulse Rate [orthos tatic lying Pulse Oximeter] Pulse Rate [orthos tatic sitting Puls e Oximeter] Pulse Rate [orthos tatic standing Pul se Oximeter] Respiratory Rate 18 20 Blood Pressure [Le ft Arm] 112/85 Blood Pressure [or thostatic lying Ri ght Arm] Blood Pressure [or thostatic sitting Right Arm] Blood Pressure [or thostatic standing Right Arm] Pulse Oximetry 96 Oxygen Delivery Me thod Room Air 01/18/24 23:00 01/18/24 23:00 01/18/24 23:00 Temperature 98 F Pulse Rate 82 Pulse Rate [Pulse Oximeter] 89 89 Pulse Rate [orthos tatic lying Pulse Oximeter] Pulse Rate [orthos tatic sitting Puls e Oximeter] Pulse Rate [orthos tatic standing Pul se Oximeter] Respiratory Rate 20 20 Blood Pressure [Le ft Arm] 95/70 Blood Pressure [or thostatic lying Ri ght Arm] Blood Pressure [or thostatic sitting Right Arm] Blood Pressure [or thostatic standing Right Arm] Pulse Oximetry 96 Oxygen Delivery Me thod Room Air 01/19/24 03:00 01/19/24 06:58 01/19/24 07:37 Temperature 98.2 F 98.1 F Pulse Rate 78 Pulse Rate [Pulse Oximeter] 86 96 Pulse Rate [orthos tatic lying Pulse Oximeter] Pulse Rate [orthos tatic sitting Puls e Oximeter] Pulse Rate [orthos tatic standing Pul se Oximeter] Respiratory Rate 18 18 Blood Pressure [Le ft Arm] 117/76 113/70 Blood Pressure [or thostatic lying Ri ght Arm] Blood Pressure [or thostatic sitting Right Arm] Blood Pressure [or thostatic standing Right Arm] Pulse Oximetry 96 93 Oxygen Delivery Me thod Room Air Room Air 01/19/24 07:40 Temperature Pulse Rate Pulse Rate [Pulse Oximeter] 96 Pulse Rate [orthos tatic lying Pulse Oximeter] Pulse Rate [orthos tatic sitting Puls e Oximeter] Pulse Rate [orthos tatic standing Pul se Oximeter] Respiratory Rate 18 Blood Pressure [Le ft Arm] Blood Pressure [or thostatic lying Ri ght Arm] Blood Pressure [or thostatic sitting Right Arm] Blood Pressure [or thostatic standing Right Arm] Pulse Oximetry Oxygen Delivery Me thod DS: Data Data Completed and Pending Labs on day of discharge: Labs from last 24 hours 01/19/24 06:35 WBC 4.31 L RBC 4.62 Hgb 12.6 Hct 39.7 MCV 86 MCH 27 MCHC 32 RDW Coeff of Tigist 16.2 H Plt Count 185 Neut % (Auto) 58.3 Lymph % (Auto) 27.8 [place] % (Auto) 9.0 Eos % (Auto) 4.2 Baso % (Auto) 0.5 Neut # (Auto) 2.50 Lymph # (Auto) 1.20 [place] # (Auto) 0.40 Eos # (Auto) 0.20 Baso # (Auto) 0.00 Abs Immat Gran (auto) 0.00 Imm/Tot Granulo (auto) 0.2 Sodium 136 Potassium 4.1 Chloride 105 Carbon Dioxide 27 Anion Gap 4 L BUN 38 H Creatinine 1.5 Estimated Creat Clear 22.82 Estimated GFR 34 Glucose 95 Calcium 8.8 C-Reactive Protein 1.0 Imaging Chest x-ray: Attestation: I have reviewed the pertinent imaging results. Radiologist's impression: Hyperinflation and chronic interstitial change without dense consolidation CT scan - head: Attestation: I have reviewed the pertinent imaging results. Radiologist's impression: 1. No acute intracranial abnormality. 2. Mild generalized volume loss and changes of chronic small vessel ischemic disease. Hip x-ray: Attestation: I have reviewed the pertinent imaging results. Radiologist's impression: No acute osseous abnormality Knee x-ray: Attestation: I have reviewed the pertinent imaging results. Radiologist's impression: No acute osseous abnormality Shoulder x-ray: Attestation: I have reviewed the pertinent imaging results. Radiologist's impression: No acute osseous abnormality Discharge Plan Discharge Disposition: Home, Self-Care Date of Admission: 01/16/24 20:37 Attending Provider on Discharge: Kathya Gotti Primary Care Provider: Bekah Elena Condition: Improved Anticipated Discharge Date/Time: 01/19/24 10:38 Discharge Medications: New cephalexin 500 mg Capsule 500 mg PO TID Qty: 12 0RF Continued famotidine [Pepcid AC] 10 mg tablet 10 mg PO DAILY cholecalciferol (vitamin D3) 25 mcg (1,000 unit) capsule 25 mcg PO DAILY carvedilol 12.5 mg tablet 12.5 mg PO BID Qty: 180 1RF Rx Instructions: 1 tablet twice daily for a-fib administer with a meal/food Eliquis 2.5 mg tablet 2.5 mg PO BID potassium chloride 10 mEq capsule, extended release 10 meq PO BID Qty: 180 1RF Rx Instructions: Take 1 tablet twice daily for potassium supplement while on furosemide Changed furosemide 20 mg tablet 20 mg PO 1XD Qty: 180 0RF Rx Instructions: one tablet twice daily (Early AM, and afternoon) Discharge Orders: Discharge Order (Routine); Ordered 01/19/24 Ordered By: Kathya Gotti Patient Education: Cephalexin (By mouth) (Bio-Cef, Keflex), Urinary Tract Infection in Older Adults (GEN), COVID-19 (Coronavirus Disease 2019) (GEN) Additional Instructions: Finish the antibiotic for your urinary tract infection. TAKE YOUR FUROSEMIDE ONCE DAILY, ONLY IN THE MORNING, UNTIL FOLLOW UP WITH YOUR PCP Activity Level: Activity as Tolerated Discharge Diet: Regular Follow Up Appointments: Bekah Elena PA-C [Primary Care Provider] - 01/30/24 3:15 pm (Post hospital follow up at [facility]) Forms: [employer] Info Instructions
--- NOTE | 2024-01-19 12:15 | PC.NURSE ---
Discharge. pt has been pleasant. a little MARSHALL with mask on pt is alert and oriented. left side pain in hip and knee 4-6/10 and she said no to Tylenol. she is up with walker, gait belt, SBA she was able to everything on her own. Pt denied any lightheadedness or dizziness. on Covid precautions. she is eating, drinking and been incontinent on and off. brief is on. discharge was done. went over medications. appointments, education and instructions. pt went over and signed personal belonging sheet. SL was d/c intact. she got a w/c ride to car with covid precauations.
== END 2024-01-19 12:00 | disposition home or self-care (01) | DRG 178 ==
LOC: ED 15:43 → MEDSURG 16:21
PROVIDERS: Admitting Provider Family Medicine; Emergency Provider Family Medicine; PCP Physician Assistant Medical; Visit Provider Family Medicine
DX: U07.1 COVID-19 (principal); N17.9 Acute kidney failure, unspecified; N39.0 Urinary tract infection, site not specified; I35.0 Nonrheumatic aortic (valve) stenosis; I12.9 Hypertensive chronic kidney disease with stage 1 through stage 4 chronic kidney disease, or unspecified chronic kidney disease; N18.9 Chronic kidney disease, unspecified; E87.6 Hypokalemia; R19.7 Diarrhea, unspecified; R55 Syncope and collapse; I48.91 Unspecified atrial fibrillation; Z79.01 Long term (current) use of anticoagulants; B96.20 Unspecified Escherichia coli [E. coli] as the cause of diseases classified elsewhere; I45.10 Unspecified right bundle-branch block; I25.2 Old myocardial infarction; I25.10 Atherosclerotic heart disease of native coronary artery without angina pectoris; Z85.42 Personal history of malignant neoplasm of other parts of uterus
CPT/HCPCS: 36415; 70450; 71046; 73030; 73502; 73560; 80048; 80053; 81001; 82550; 83605; 84484; 85025; 86140; 87086; 87186; 87631; 93005; 94761; 97110; 97116; 97161; 97165; 97535; 99285; A9270; J7050; J7120

== ENCOUNTER 2024-06-20 12:49 | Outpatient (CLI) | payer MEDICARE, SELFPAY | END 2024-06-20 12:50 | disposition home or self-care (01) | LOC: RAD 12:49 | PROVIDERS: PCP Physician Assistant Medical; Visit Provider Nurse Practitioner | DX: I35.0 Nonrheumatic aortic (valve) stenosis (principal); I34.0 Nonrheumatic mitral (valve) insufficiency; I07.1 Rheumatic tricuspid insufficiency | CPT/HCPCS: 93308; 93321; 93325 ==